=== PATIENT | male | born 1975 | race Asian ===

== ENCOUNTER 2019-07-04 23:51 | Emergency (ER) | payer MEDICAID ==
[~2019-07-04] VITALS: Ht 177.8 cm; Wt 91.6 kg
--- NOTE | 2019-07-05 | NUR ---
ED Nurse Note: Patient walked into ED c/o left shoulder pain accompanied by right thigh pain, states that he hasnt taken his blood pressure medications for the past 10 months, denies any headache or blurred vision. Blood pressure at triage is 192/120. Pt on monitor and resting. Will continue to monitor.
[2019-07-05 00:12] VITALS: BP 172/107
--- NOTE | 2019-07-05 00:19 | NUR ---
ED Nurse Note: IV access established with 20g saline lock. Blood drawn. Line patent and intact.
--- NOTE | 2019-07-05 00:27 | NUR ---
ED Nurse Note: ERMD at bedside
[2019-07-05] MEDS ORDERED: Lisinopril 10mg tab ORAL ONE (00:30)
[2019-07-05 00:32] VITALS: BP 172/107
[2019-07-05 00:34] LABS: BASOPHILS % (AUTO) 1.4 % (0.0-2.0); EOSINOPHILS % (AUTO) 2.7 % (0.0-3.0); HEMATOCRIT 46.1 % (42.0-52.0); HEMOGLOBIN 15.3 G/DL (14.2-18.0); LYMPHOCYTES % (AUTO) 34.3 % (20.0-45.0); MEAN CORPUSCULAR VOLUME 82 FL (80-99); MONOCYTES % (AUTO) 11.5 % (1.0-10.0); NEUTROPHILS % (AUTO) 50.1 % (45.0-75.0); PLATELET COUNT 243 K/UL (150-450); RED CELL DISTRIBUTION WIDTH 11.4 % (11.6-14.8); WHITE BLOOD COUNT 7.6 K/UL (4.8-10.8)
[2019-07-05 00:44] LABS: ANION GAP 6 mmol/L (5-15); BLOOD UREA NITROGEN 17 mg/dL (7-18); CALCIUM 9.1 MG/DL (8.5-10.1); CARBON DIOXIDE 31 MMOL/L (21-32); CHLORIDE 103 MMOL/L (98-107); CREATININE 1.2 MG/DL (0.55-1.30); POTASSIUM 3.6 MMOL/L (3.5-5.1); SODIUM 140 MMOL/L (136-145)
[2019-07-05 00:49] LABS: ALANINE AMINOTRANSFERASE 29 U/L (12-78); ALBUMIN/GLOBULIN RATIO 0.9 (1.0-2.7); ALKALINE PHOSPHATASE 96 U/L (46-116); ASPARTATE AMINO TRANSFERASE 24 U/L (15-37); BILIRUBIN,TOTAL 0.5 MG/DL (0.2-1.0)
[2019-07-05] MEDS ORDERED: LISINOPRIL10 MG ORAL (01:00)
--- NOTE | 2019-07-05 01:15 | NUR ---
ER DISCHARGE NOTE: Patient is cleared to be discharged per ERMD, pt is aox4, on room air. Pt was given dc and prescription instructions, pt was able to verbalize understanding, pt id band and iv site removed without complications. pt is able to ambulate with steady gait. pt took all belongings.
--- NOTE | 2019-07-05 03:24 | Emergency Room Report ---
History of Present Illness General Chief Complaint: Hypertension Source: Patient Present Illness HPI Patient presents with complaints of having high blood pressure Initially had complained of right thigh pain However reports that he feels that his blood pressure was essentially high and wanted to have that checked Denies any chest pain or shortness of breath denies any vomiting denies any focal weakness Allergies: Coded Allergies: No Known Allergies (Unverified , 07/04/19) Patient History Past Medical History: see triage record Reviewed Nursing Documentation: PMH: Agreed; PSxH: Agreed Nursing Documentation-PMH Past Medical History: No History, Except For Hx Hypertension: Yes Review of Systems All Other Systems: negative except mentioned in HPI Physical Exam Vital Signs Date Time Temp Pulse Resp B/P (MAP) Pulse Ox O2 Delivery O2 Flow Rate FiO2 07/04/19 23:54 97.9 90 18 192/120 (144) 99 Room Air Sp02 EP Interpretation: reviewed, normal General Appearance: well appearing, no apparent distress Head: normocephalic, atraumatic Eyes: bilateral eye PERRL, bilateral eye EOMI ENT: hearing grossly normal, normal pharynx, TMs + canals normal, uvula midline Neck: full range of motion, supple, no meningismus, no bony tend Respiratory: lungs clear, normal breath sounds, no rhonchi, no respiratory distress, no retraction, no accessory muscle use Cardiovascular #1: normal peripheral pulses, regular rate, rhythm, no edema, no gallop, no JVD, no murmur Gastrointestinal: normal bowel sounds, non tender, soft, no mass, no organomegaly, non-distended, no guarding, no hernia, no pulsatile mass, no rebound Genitourinary: no CVA tenderness Musculoskeletal: normal inspection Neurologic: motor strength/tone normal, trackmobile operator III-XII nml as tested, oriented x3 , sensory intact, responsive Psychiatric: mood/affect normal Skin: no rash Lymphatic: normal inspection, no adenopathy Medical Decision Making Diagnostic Impression: Primary Impression: Hypertension ER Course Patient is a fairly complex patient with multiple differential to consideration including but not limited to cardiac cardiopulmonary and vascular emergencies Patient otherwise appears clinically well without any other acute findings baseline blood work are obtained for further evaluation which were normal Patient provided with his medication he reports that he has been off his medications for over the past 8 months And requires close outpatient follow-up Labs Test 07/05/19 00:05 White Blood Count 7.6 K/UL (4.8-10.8) Red Blood Count 5.60 M/UL (4.70-6.10) Hemoglobin 15.3 G/DL (14.2-18.0) Hematocrit 46.1 % (42.0-52.0) Mean Corpuscular Volume 82 FL (80-99) Mean Corpuscular Hemoglobin 27.4 PG (27.0-31.0) Mean Corpuscular Hemoglobin Concent 33.2 G/DL (32.0-36.0) Red Cell Distribution Width 11.4 % (11.6-14.8) Platelet Count 243 K/UL (150-450) Mean Platelet Volume 5.9 FL (6.5-10.1) Neutrophils (%) (Auto) 50.1 % (45.0-75.0) Lymphocytes (%) (Auto) 34.3 % (20.0-45.0) Monocytes (%) (Auto) 11.5 % (1.0-10.0) Eosinophils (%) (Auto) 2.7 % (0.0-3.0) Basophils (%) (Auto) 1.4 % (0.0-2.0) Sodium Level 140 MMOL/L (136-145) Potassium Level 3.6 MMOL/L (3.5-5.1) Chloride Level 103 MMOL/L (98-107) Carbon Dioxide Level 31 MMOL/L (21-32) Anion Gap 6 mmol/L (5-15) Blood Urea Nitrogen 17 mg/dL (7-18) Creatinine 1.2 MG/DL (0.55-1.30) Estimat Glomerular Filtration Rate > 60 mL/min (>60) Glucose Level 77 MG/DL (74-106) Calcium Level 9.1 MG/DL (8.5-10.1) Total Bilirubin 0.5 MG/DL (0.2-1.0) Aspartate Amino Transf (AST/SGOT) 24 U/L (15-37) Alanine Aminotransferase (ALT/SGPT) 29 U/L (12-78) Alkaline Phosphatase 96 U/L (46-116) Total Protein 8.3 G/DL (6.4-8.2) Albumin 4.0 G/DL (3.4-5.0) Globulin 4.3 g/dL Albumin/Globulin Ratio 0.9 (1.0-2.7) Rhythm Strip Diag. Results EP Interpretation: yes Rate: 80 Rhythm: NSR, no PVC's, no ectopy Last Vital Signs Date Time Temp Pulse Resp B/P (MAP) Pulse Ox O2 Delivery O2 Flow Rate FiO2 07/05/19 00:32 172/107 07/05/19 00:12 84 16 Room Air 07/05/19 00:12 97.9 99 Status: improved Disposition: HOME, SELF-CARE Condition: Improved Scripts Lisinopril* (LISINOPRIL*) 10 Mg Tablet 10 MG ORAL DAILY for 30 Days, TAB Prov: Leonardo Freeman DO 07/05/19 Referrals: NOT CHOSEN IPA/MD,REFERRING (PCP) [facility] Patient Instructions: Hypertension, [id number] Additional Instructions: Patient is provided with the discharge instructions notified to follow up with primary doctor in the next 2-3 days otherwise return to the er with any worsening symptoms. Please note that this report is being documented using [employer] technology. This can lead to erroneous entry secondary to incorrect interpretation by the dictating instrument. eLonardo Freeman DO Jul 05, 2019 03:24
--- NOTE | 2019-07-05 13:43 | Cardiology Report ---
APPROVED REPORT EKG Measurement Heart [id number] Normal sinus rhythm Rightward axis Borderline ECG
== END 2019-07-05 01:15 | disposition home or self-care (01) ==
LOC: EMR 23:59
DX: I10 Essential (primary) hypertension (principal)
CPT/HCPCS: 36415; 80053; 85025; 93005; Z7502; 99283

== ENCOUNTER 2019-07-12 14:47 | Emergency (ER) | payer MEDICAID ==
[~2019-07-12] VITALS: Ht 177.8 cm; Wt 91.6 kg
[~2019-07-12 14:47] MED LIST: LISINOPRIL10 MG ORAL
[2019-07-12] MEDS ORDERED: LISINOPRIL20 MG ORAL ×2 (14:58→15:11)
[2019-07-12 14:59] VITALS: BP 144/100
--- NOTE | 2019-07-12 15:02 | NUR ---
ED Nurse Note: pt walked in for med refill for his bp med.
[2019-07-12] MEDS ORDERED: TESSALON PERLE100 M2 ORAL (15:12)
--- NOTE | 2019-07-12 15:18 | NUR ---
ED Nurse Note: Pt cleared by health care Provider for discharge. DC instructions/prescription was given and explained to pt and verbalized understanding of teachings. All medical deviecs such as ID band removed. Pt is AAO x4, ambulatory and left with all personal belongings.
[2019-07-12 15:20] VITALS: BP 144/100
--- NOTE | 2019-07-12 15:27 | Emergency Room Report ---
History of Present Illness General Chief Complaint: Medication Refill Source: Patient Present Illness HPI 43-year-old male with history of hypertension requesting refill for lisinopril 20 mg. States has been having dry itchy cough x 3 days. Denies shortness of breath, chest pain, palpitations, leg pain. Patient was seen 1 week ago, given prescription for lisinopril 10 mg. Patient states that he accidentally threw his medication away in the trash. Allergies: Coded Allergies: No Known Allergies (Unverified , 07/04/19) Patient History Past Medical History: HTN Past Surgical History: none Social History: Reports: smoking Nursing Documentation-[facility] Past Medical History: No History, Except For Hx Hypertension: Yes Review of Systems All Other Systems: negative except mentioned in HPI Physical Exam Vital Signs Date Time Temp Pulse Resp B/P (MAP) Pulse Ox O2 Delivery O2 Flow Rate FiO2 07/12/19 14:52 98.1 89 17 144/100 (115) 99 Room Air Sp02 EP Interpretation: reviewed Respiratory: chest non-tender, lungs clear, normal breath sounds, speaking full sentences Cardiovascular #1: regular rate, rhythm, no edema Gastrointestinal: soft, no mass Neurologic: alert, side sawyer III-XII nml as tested, oriented x3 Medical Decision Making PA Attestation This patient was seen under the direct supervision of Dr. Beltran, who directed all aspects of care and diagnostic interpretation. Diagnostic Impression: Primary Impression: Medication refill Additional Impression: cough ER Course ED course HPI: 43-year-old male with history of hypertension requesting refill for lisinopril 20 mg. States has been having dry itchy cough x 3 days. Denies shortness of breath, chest pain, palpitations, leg pain. Patient was seen 1 week ago, given prescription for lisinopril 10 mg. Patient states that he accidentally threw his medication away in the trash. Orders/ Interventions: None. Pt is well appearing with no distress. VSS. Pt is ambulatory with strong, steady gait. Pt has normal BP. No active chest pain, dizziness and pt has normal PE. Pt has no focal neural, arm drift, facial droop, unilateral weakness or numbness, slurred speech, vision impair. Discussed with patient the importance of establishing care with primary care physician. Disposition: Take lisinopril 20mg as Rx. Smoking cessation discussed. Educated on diet modification, cut down on salt intake, caffeine, and processed foods, drink plenty of water, exercise, and reduce stress. Keep home windows closed. Cool mist humidifier. Take Tessalon as prescribed. At this time pt. is stable for d/c to home. Will provide printed patient care instructions, and any necessary prescriptions. Care plan and follow up instructions have been discussed with the patient prior to discharge. Please note that this Emergency Department Report was dictated using [employer] and health services manager technology software, occasionally this can lead to erroneous entry secondary to interpretation by the dictation equipment. Last Vital Signs Date Time Temp Pulse Resp B/P (MAP) Pulse Ox O2 Delivery O2 Flow Rate FiO2 07/12/19 14:59 98.1 17 144/100 99 Room Air 07/12/19 14:52 89 Disposition: HOME, SELF-CARE Condition: Stable Scripts Benzonatate (Tessalon Perle) 100 Mg Capsule 100 MG ORAL THREE TIMES A DAY, #20 PERLE 0 Refills Prov: Lev Knutson 07/12/19 Lisinopril (LISINOPRIL*) 20 Mg Tablet 20 MG ORAL DAILY, #14 TAB 0 Refills Prov: Lev Knutson 07/12/19 Referrals: [facility]. [facility] Patient Instructions: Medicine Refill at the Emergency Department Additional Instructions: Follow-up with PCP for chronic disease management or to ER if worsening symptoms , new symptoms or sudden change in condition. Lev Knutson Jul 12, 2019 15:27
== END 2019-07-12 15:18 | disposition home or self-care (01) ==
LOC: EMR 15:04
DX: Z76.0 Encounter for issue of repeat prescription (principal); R05 Cough; I10 Essential (primary) hypertension; F17.200 Nicotine dependence, unspecified, uncomplicated
CPT/HCPCS: 99282